=== PATIENT | male | born 2000 | race African-American/Black ===

== ENCOUNTER 2021-12-21 21:41 | Emergency (ER) | payer SELFPAY ==
[~2021-12-21] VITALS: Ht 190.5 cm; Wt 79.0 kg
[2021-12-21] MEDS ORDERED: KETOROLAC 60MG/2ML VIAL IM STA (21:42)
[2021-12-21 21:43] VITALS: BP 131/75
[2021-12-21] MEDS ORDERED: ASPIRIN 81MG TABLET PO ONE (21:45)
[2021-12-21 22:09] LABS: BASOPHILS % 0.3 % (0.0-2.0); EOSINOPHILS % 0.2 % (0.0-5.0); HEMATOCRIT. 31.4 % (42.0-52.0); HEMOGLOBIN. 10.7 g/dL (14.0-18.0); LYMPHOCYTES % 11.8 % (20.0-50.0); MEAN CORPUSCULAR HEMOGLOBIN 31.7 pg (28.0-32.0); MEAN CORPUSCULAR VOLUME 92.6 fL (80.0-94.0); MEAN PLATELET VOLUME 7.2 fl (7.4-10.4); MONOCYTES % 12.4 % (2.0-8.0); NEUTROPHILS % 75.3 % (40.0-76.0); PLATELET 362 x1000/uL (130-400); RED BLOOD CELL COUNT 3.39 mill/uL (4.7-6.1)
[2021-12-21 22:18] LABS: CHLORIDE 104 mEq/L (98-107)
== END 2021-12-22 00:40 | disposition left against medical advice (07) ==
LOC: ER 21:41
DX: R07.89 Other chest pain (principal); R79.1 Abnormal coagulation profile; F90.9 Attention-deficit hyperactivity disorder, unspecified type
CPT/HCPCS: 36415; 71045; 80053; 83880; 84484; 85025; 85379; 93005; 99285; J1885